=== PATIENT | female | born 1955 | race Caucasian/White ===

== ENCOUNTER 2016-12-18 11:20 | Day surgery (SDC) | payer OTHER ==
[~2016-12-18 11:20] MED LIST: CHLORHEXIDINE GLUC HIBICLENS 118 ML BTL TP ONE; ceFAZolin 2 GM/DEXTROSE 100 ML IV ONE
[2016-12-18] MEDS ORDERED: LR 1,000 ML IV ONE (11:50)
[2016-12-18] MEDS ORDERED: LIDOCAINE 1% 5 ML SDV ID PRN (11:50)
[2016-12-18] MEDS ORDERED: CEFAZOLIN 2 GM/DEXTROSE/100 ML BAG IV ONE (12:29)
[2016-12-18] MEDS ORDERED: BUPIVACAINE 0.5% 30 ML SDV ONE (12:33)
[2016-12-18] MEDS ORDERED: LIDOCAINE 1% 30 ML SDV ONE (12:33)
[2016-12-18] MEDS ORDERED: DEXAMETHASONE 4 MG/ML VIAL ONE (12:34)
[2016-12-18] MEDS ORDERED: ROPIVACAINE HCL 20 MG/10 ML INJ EP ONE (12:35)
[2016-12-18] MEDS ORDERED: BACITRACIN 50,000 UNITS/10 ML SYR IRR ONE (12:35)
[2016-12-18] MEDS ORDERED: MIDAZOLAM 2 MG/2 ML VIAL ONE (13:12)
[2016-12-18] MEDS ORDERED: fentaNYL 100 MCG/2 ML INJ ONE (13:16)
[2016-12-18] MEDS ORDERED: PROPOFOL/EMULSION 500 MG/50 ML BOTTLE IV ONE (13:16)
[2016-12-18] MEDS ORDERED: PROPOFOL 200 MG/20 ML VIAL ONE (14:52)
--- NOTE | 2016-12-18 16:18 | DX ---
Left Foot , 3 portable views History: Postoperative alignment check Findings: There is an osteotomy of the distal first metatarsal metaphysis associated with dorsal ort hopedic fusion hardware which affixes the first metatarsal-phalangeal joint in excellent anatomic ali gnment. There is no evidence for screw loosening or plate fracture. Impression: Excellent postoperative alignment of the great toe.
--- NOTE | 2016-12-18 20:56 | GOP ---
[f rep st] OPERATIVE REPORT DATE OF OPERATION: SURGEON: Edith Mata DPM [employer] HELPER: Veena Mata DPM. ANESTHESIA: IV sedation with local. ANESTHESIOLOGIST: Sudeep Salgado M.D. PREOPERATIVE DIAGNOSIS: Painful hallux valgus with hallux rigidus deformity with osteoarthritis, the 1st metatarsophalangeal joint, left foot. POSTOPERATIVE DIAGNOSIS: 1. Painful hallux valgus with hallux rigidus deformity with osteoarthritis, the 1st metatarsophalang eal joint, left foot. 2. Advanced osteoarthritis to the 1st metatarsophalangeal joint and bone cyst to the base of the pro ximal phalanx, all left foot. PROCEDURE PERFORMED: Arthrodesis of the 1st metatarsophalangeal joint, curettage of the bone cyst, a nd incorporation of Asha to the fusion site and cyst, utilizing plate and screws for fixation, all left foot. FINDINGS: INDICATIONS: The patient presented to the hospital approximately 1-1/2 hours prior to foot surgery a fter having been n.p.o. past midnight. The patient's preoperative history and physical and all preop erative studies were reviewed, and there were no contraindications to the proposed procedure. The pa tient was given Ancef 2 g 1/2 hour prior to foot surgery. DESCRIPTION OF PROCEDURE: The patient was taken to the OR and placed on the OR table in a supine pos ition where the appropriate anesthetic agents were administered. This was supplemented with a local block given to the left foot proximal to the surgical site in a Valle block fashion and to the posteri or tibial nerve as it courses through the posterior tibial tunnel utilizing a total of 10 cc of 1% li docaine plain, 8 cc of Naropin 0.2%, and 6 cc of 0.25% Marcaine plain. The left lower extremity was then prepped and draped in the usual aseptic fashion and covered with a sterile stockinette. A steri le pneumatic ankle tourniquet was applied, covered underneath well with Kerlix. Utilizing elevation overlying Esmarch bandage, the left foot was exsanguinated and the tourniquet was inflated to a press ure of 225 mmHg. The foot was then lowered to the orthopedic table. Attention was then directed to the dorsal medial aspect of the 1st metatarsophalangeal joint where an approximate 6 cm curvilinear incision was made, extended over the first metatarsophalangeal joint. The incision was initiated at the base of the proximal phalanx and extended proximally overlying the first metatarsal. The incision was made medial to the extensor hallucis longus tendon. The incision was deepened through the subcutaneous tissues to the level of the capsular tissues, taking care to p reserve the neurovascular structures. Any bleeders were clamped and cauterized as needed. The subcu taneous tissues were freed from the underlying capsular tissues to the dorsomedial aspect of the firs t metatarsophalangeal joint. A linear capsular incision was made to the dorsal and medial aspect of the first metatarsophalangeal joint, and the capsular and periosteal tissues were reflected off the d orsal and medial aspect head of the first metatarsal and base of the proximal phalanx. The first met atarsophalangeal joint space was inspected, and there was significant absence of articular cartilage down to subchondral bone and thinning of the surrounding articular cartilage. Approximately 70-75% o f the head of the first metatarsal lacked normal cartilage covering. The defect presented to the karen tral and dorsal 2/3 of the joint. A digital photo of the joint was obtained. The significant hypert rophic bone and osteophytes to the dorsal aspects of the base of the proximal phalanx and head of the first metatarsal which was resected utilizing a rongeur and a sagittal saw, and placed on the back t able. There was white, chalky appearance within the joint consistent with gout. The hypertrophic me dial eminence of the first metatarsal head was resected and placed on the back table. This piece of bone was sent for pathologic evaluation since tophi from gout presented to a portion of the segment o f bone. The base of the proximal phalanx was then inspected, and the bone cyst was identified that c ould be seen on the radiographs. The circumference of the bone cyst involving the articular surface of the base of the proximal phalanx measured approximately 5-6 mm. Once this window was opened, the inside cyst was curettaged for moving the thick viscous fluid inside. The depths of the cyst measure d approximately 7-8 mm. The cystic alford were curetted, and small drill holes were created within th e cyst to stimulate some bone bleeding. The first metatarsal head was then exposed, and a guidewire was placed into the central aspect of the head of the 1st metatarsal in a distal to proximal fashion to serve as a guidewire for the reamer provided by [employer] for the first metatarsophalangeal joint pl ate system. A 19 mm reamer was then utilized to prepare the first metatarsal head for fusion by walt ving the articular cartilage to the level of subchondral bone. The guidewire was removed, and the sa me procedure was performed to the base of the proximal phalanx, utilizing the guide pin for preparati on for the fusion. The hypertrophic bone to the perimeter of the head of the 1st metatarsal and base of the proximal phalanx was then resected with a rongeur, and smoothed into a smooth surface. The s urgical site was then copiously irrigated with a sterile saline bacitracin solution. The 1st metatar jada head and base of the proximal phalanx was then fenestrated with a drill bit and bone chisel, agai n preparing the joint for the fusion. Asha was then applied inside the bone cyst and to the 1st m etatarsophalangeal joint. The proximal phalanx was then held flush upon the head of the 1st metatars al, holding it in a rectus position and the [place] was placed dorsal to the fusion site to check ali gnment and fit. A decision was made to utilize the medium size plate with 0 angulation. The plate w as temporarily fixated to the fusion site with olive pins while the hallux was being held in the sidney red position. A 0.054 K-wire was placed across the fusion site for temporary fixation. A guidewire for the 3.5 headless [place] screw was then placed in a distal proximal fashion through the medial as pect of the base of the proximal phalanx, extending proximally and laterally into the 1st metatarsal head. Alignment was checked with a C-arm and optimal. The site was prepared for the head and drille d in a standard fashion, and a 3.5 headless [place] screw measuring 22 mm in length was placed over t he guidewire, crossing the fusion site. The guidewire was removed. The plate was then secured to th e dorsal aspect of the fusion site. Alignment was checked again with a C-arm with plate positioning which was optimal. First, a 3.5 locking screw was placed to the distal medial arm of the plate, linus uring 12 mm in length. The olive pins were then removed and a 3.5 compression screw was placed throu gh the compression hole, measuring 16 mm in length. Then, another locking screw that was a 2.7, linus uring 16 mm in length, was placed through the other distal arm of the plate. Attention was then dire cted to the proximal aspect of the plate, and a 2.7, 20 mm locking screw was placed distal to the com pression screw. Attention was redirected to the base of the proximal phalanx, where a locking 2.7 he aded screw measuring 16 mm in length was placed. A screw was not placed to the medial arm of the pro ximal plate since there was some resistance when drilling the preparation hole. No additional fixati on was necessary since the fusion site was in good alignment, flush, well approximated and stable. A C-arm was utilized to check alignment of the fusion site and positioning and length of the screws. The surgical site was copiously irrigated with a sterile saline Bacitracin solution. Asha was zulay nato through the lateral aspect of the 1st metatarsophalangeal joint, and the capsular tissues were re approximated with 2-0 Vicryl and 4-0 Vicryl utilizing simple sutures. The tourniquet was released an d there was immediate capillary refill to all digits and there was hemostasis. The subcutaneous tiss ues were reapproximated with 4-0 Monocryl. The skin was reapproximated utilizing 4-0 Prolene with in terrupted horizontal mattress sutures. A mildly compressive dry sterile gauze dressing was applied w ith Xeroform, 4x4 gauze, Emmanuel and an Carter bandage. The patient tolerated the procedures and anesthesia well, and was transferred to the recovery room wi th vital signs stable and vascular status intact to the left lower extremity. In the recovery room, the patient received postoperative oral and written home care instructions. The patient instructed o n strict nonweightbearing on the forefoot but can balance her weight on the left heel as needed, wear ing the cast boot at all times. The patient is instructed to utilize crutches or a rollabout for amb ulation assist. Prescriptions have been given for Percocet to take postoperatively as prescribed for pain. The patient was dispensed a cryo cuff and instructed on its usage. I reviewed with the patie nt the indications for the arthrodesis versus a bunionectomy with osteotomy due to the advanced arthr itis which presented to the joint. The patient had been also given a prescription for MS Contin to t wilfredo 1 every 12 hours for pain and Percocet to take for breakthrough pain as prescribed. The procedur e went well without complications. The patient is scheduled for followup visit in the office. Call the office earlier if any questions or problems should arise. /[id number]/MODL
== END 2016-12-18 17:15 | disposition home or self-care (01) ==
LOC: FSGY 11:20
PROVIDERS: ATTEND Podiatrist
PROC: 0QBP0ZZ Excision of Left Metatarsal, Open Approach (ICD-10-PCS; principal; 2016-12-18 13:00)
PROC: 0SGN04Z Fusion of Left Metatarsal-Phalangeal Joint with Internal Fixation Device, Open Approach (ICD-10-PCS; principal; 2016-12-18 13:00)
DX: M20.22 Hallux rigidus, left foot (principal); M20.12 Hallux valgus (acquired), left foot; M85.472 Solitary bone cyst, left ankle and foot; M19.072 Primary osteoarthritis, left ankle and foot; I10 Essential (primary) hypertension
CPT/HCPCS: 28108; 28111; 28750; 73630; C1769; C1713; C1762; J0690; J1100; J2250; J2704; J2795; J3010

== ENCOUNTER → 2017-01-10 | Outpatient (CLI) | payer OTHER | LOC: BRMIMAGING 10:43 | DX: Z12.31 Encounter for screening mammogram for malignant neoplasm of breast (principal) | CPT/HCPCS: G0202 ==

== ENCOUNTER → 2018-01-28 | Outpatient (CLI) | payer OTHER | LOC: BRMIMAGING 13:06 | PROVIDERS: ATTEND Internal Medicine | DX: Z12.31 Encounter for screening mammogram for malignant neoplasm of breast (principal) ==

== ENCOUNTER → 2018-12-11 | Outpatient (CLI) | payer OTHER, MEDICARE | LOC: BHFA 09:00 | PROVIDERS: ATTEND Internal Medicine Cardiovascular Disease | DX: R94.31 Abnormal electrocardiogram [ECG] [EKG] (principal) | CPT/HCPCS: 78452; 93017; A9500; J2785 ==

== ENCOUNTER → 2018-12-19 | Outpatient (CLI) | payer OTHER, MEDICARE | LOC: BHFA 14:00 | PROVIDERS: ATTEND Internal Medicine Interventional Cardiology | DX: R94.31 Abnormal electrocardiogram [ECG] [EKG] (principal); I10 Essential (primary) hypertension ==

== ENCOUNTER → 2019-04-27 | Outpatient (CLI) | payer OTHER, MEDICARE | LOC: BRMIMAGING 11:23 ==